=== PATIENT | male | born 1955 | race Caucasian/White ===

== ENCOUNTER → 2018-01-16 11:15 | Outpatient (CLI) | payer OTHER, BC, SELFPAY ==
[2018-01-16 12:27] LABS: PSA,Total- Diagnostic 4.58 ng/mL (0.0-4.0)
== END ==
PROVIDERS: Family Provider Family Medicine; PCP Family Medicine; Referring Provider Urology; Visit Provider Urology
DX: R97.20 Elevated prostate specific antigen [PSA] (principal)
CPT/HCPCS: 36415; 84153

== ENCOUNTER → 2018-07-21 | Outpatient (CLI) | payer OTHER, BC, SELFPAY ==
[2018-07-21 11:05] LABS: PSA,Total- Diagnostic 4.14 ng/mL (0.0-4.0)
== END | disposition home or self-care (01) ==
LOC: LAB.FUTURE 09:57
PROVIDERS: Family Provider Family Medicine; PCP Family Medicine; Referring Provider Urology; Visit Provider Urology
DX: R97.20 Elevated prostate specific antigen [PSA] (principal)
CPT/HCPCS: 36415; 84153

== ENCOUNTER → 2019-07-23 10:27 | Outpatient (CLI) | payer OTHER, BC, SELFPAY ==
[2019-07-23 12:12] LABS: PSA,Total- Diagnostic 3.97 ng/mL (0.0-4.0)
== END ==
LOC: LAB.FUTURE 10:35 → LAB 10:38
PROVIDERS: PCP Family Medicine; Referring Provider Urology; Visit Provider Urology
DX: R97.20 Elevated prostate specific antigen [PSA] (principal)
CPT/HCPCS: 36415; 84153

== ENCOUNTER 2020-07-17 15:08 | Outpatient (RCR) | payer OTHER, BC, SELFPAY | END 2020-09-09 23:59 | LOC: IMMUN 15:08 | PROVIDERS: PCP Family Medicine; Referring Provider Family Medicine; Visit Provider Family Medicine | DX: Z23 Encounter for immunization (principal) | CPT/HCPCS: 0001A; 0002A; 91300 ==

== ENCOUNTER → 2021-08-14 | Outpatient (CLI) | payer OTHER, BC, SELFPAY ==
[2021-08-14 11:41] LABS: PSA,Total - Annual Screen 3.69 ng/mL (0.00-4.00)
== END | disposition home or self-care (01) ==
LOC: LAB 10:48
PROVIDERS: PCP Family Medicine; Visit Provider Urology
DX: Z12.5 Encounter for screening for malignant neoplasm of prostate (principal)
CPT/HCPCS: 36415; 84153; G0103

== ENCOUNTER → 2022-08-17 | Outpatient (CLI) | payer MEDICARE, SELFPAY ==
[2022-08-17 10:19] LABS: PSA,Total - Annual Screen 4.76 ng/mL (0.00-4.00)
== END | disposition home or self-care (01) ==
LOC: LAB 09:31
PROVIDERS: PCP Nurse Practitioner Primary Care; Referring Provider Urology; Visit Provider Urology
DX: Z12.5 Encounter for screening for malignant neoplasm of prostate (principal)
CPT/HCPCS: 36415; 84153; G0103

== ENCOUNTER → 2023-08-23 | Outpatient (CLI) | payer MEDICARE, SELFPAY ==
[2023-08-23 12:08] LABS: PSA,Total- Diagnostic 4.67 ng/mL (0.0-4.0)
== END | disposition home or self-care (01) ==
LOC: LAB 09:58
PROVIDERS: PCP Nurse Practitioner Primary Care; Referring Provider Urology; Visit Provider Urology
DX: R97.20 Elevated prostate specific antigen [PSA] (principal)
CPT/HCPCS: 36415; 84153

== ENCOUNTER → 2024-08-28 | Outpatient (CLI) | payer MEDICARE, SELFPAY ==
[2024-08-28 12:57] LABS: PSA,Total- Diagnostic 6.06 ng/mL (0.00-4.00)
== END | disposition home or self-care (01) ==
LOC: LAB 10:42
PROVIDERS: PCP Nurse Practitioner Primary Care; Referring Provider Urology; Visit Provider Urology
DX: N40.1 Benign prostatic hyperplasia with lower urinary tract symptoms (principal)
CPT/HCPCS: 36415; 84153

== ENCOUNTER → 2024-08-30 | Outpatient (CLI) | payer MEDICARE, SELFPAY ==
[2024-08-31 14:09] LABS: PSA, Free 1.06 ng/mL; PSA, Free % 15.4 % (.)
== END | disposition home or self-care (01) ==
LOC: LAB 12:17
PROVIDERS: PCP Nurse Practitioner Primary Care; Referring Provider Nurse Practitioner; Visit Provider Nurse Practitioner
DX: R97.20 Elevated prostate specific antigen [PSA] (principal)
CPT/HCPCS: 36415; 84153; 84154

== ENCOUNTER → 2024-10-01 | Outpatient (CLI) | payer MEDICARE, SELFPAY ==
--- NOTE | 2024-10-01 12:01 | MRI_ITS ---
PROCEDURE: PELVIS W/WO CONTRAST, 10/01/2024 REASON FOR EXAM: ELEVATED PROSTATE SPECIFIC ANTIGEN, reportedly 6.0 on 08/28/2024 per technologist report TECHNIQUE: Multisequence multiplanar MRI pelvis was performed with and without IV contrast. IV Contrast: 17 mL Clariscan COMPARISON: None FINDINGS: Prostate size: 4.9 x 4.2 x 4.6 cm, estimated volume 49.2 mL. Per the above provided PSA, PSA density is 0.122 ng/mL. Transition zone: PI-RADS 2 findings. Additional lesions as below: *Lesion 1: RIGHT anterior transition zone midgland, 1.1 cm (series 12, image 17). *T2 score: 2. *DWI score: 4. *DCE: N/A. *Overall PI-RADS: 3. *Extracapsular extension:No gross extracapsular extension. Peripheral Zone: Background changes of likely prostatitis (PI-RADS 2). Extruded and partially extruded transition zone nodules present bilaterally. Neurovascular bundles: Unremarkable. Seminal vesicles: Unremarkable. Bladder: Underdistended and suboptimally evaluated. Wall thickening and trabeculation suggesting chronic bladder outlet obstruction. Lymph nodes: Prominent but nonenlarged LEFT external iliac node by PI-RADS criteria, 7 mm short axis.. Bones: No destructive or frankly suspicious bony lesions identified. Trace to small RIGHT hip joint effusion. Lumbar facet arthropathy. Likely degenerative foci of enhancement along the bilateral acetabuli. Other: Small fat containing umbilical hernia. Trace hydroceles.. MRI/Pelvis W/WO Contrast IMPRESSION: 1. 1.1 cm PI-RADS 3 lesion in the mid RIGHT anterior transition zone. No gross extracapsular extension. 2. No overt pelvic lymphadenopathy. 3. Additional description as above. Reading Location: [id number]
== END | disposition home or self-care (01) ==
LOC: OPMRI 11:59
PROVIDERS: PCP Nurse Practitioner Family; Referring Provider Urology; Visit Provider Urology
DX: R97.20 Elevated prostate specific antigen [PSA] (principal)
CPT/HCPCS: 72197; A9575; A4216

== ENCOUNTER → 2024-11-05 | Outpatient (CLI) | payer MEDICARE, SELFPAY ==
--- NOTE | 2024-11-05 13:00 | PROSBIL_PTH ---
PATIENT: SHANTAL HUA LOC: [facility] U#:[id number] AGE/SX: 69/M ROOM: RE11/05/[address]: Dr. Serg Kitchen MD : [id number] BED: DIS: 11/05/2024 SPEC #: [id number] RECD: 11/05/24 15:00 STATUS: DEBBIE KADIE #: [id number] MONCHO: 11/05/24 13:[address]: Serg Kitchen DEPT: SURGICAL PATHOLOGY RECD BY: Acosta Gu ENTERED: 11/06/24 09:46 SP TYPE: PROST BX MARIA GUADALUPE DR: Scooter Garcia, KAELA-Carrie Tissues: A - PROSTATE RIGHT B - PROSTATE RIGHT C - PROSTATE RIGHT D - PROSTATE RIGHT E - PROSTATE LEFT F - PROSTATE LEFT G - PROSTATE LEFT Procedures: PROSTATE BX Immunohistochemical Stains HEADER OPERATION: Prostate biopsy PRE-OP DIAGNOSIS: Elevated PSA TISSUE SUBMITTED: A - Right apex, B - Right mid, C - Right base, D- Right anterior, E- Left apex, F - Left mid, G - Left base MICROSCOPIC DIAGNOSIS A. Prostate, right, apex, biopsy: - Benign prostate tissue - PIN4 IHC supports the histologic impression. B. Prostate, right, mid, biopsy: - High grade PIN. - PIN4 IHC supports the histologic impression. C. Prostate, right, base, biopsy: - High grade PIN. - PIN4 IHC supports the histologic impression. D. Prostate, right, anterior, biopsy: - High grade PIN. - PIN4 IHC supports the histologic impression. E. Prostate, left, apex, biopsy: - High grade PIN. - PIN4 IHC supports the histologic impression. F. Prostate, left, mid, biopsy: - High grade PIN. - PIN4 IHC supports the histologic impression. G. Prostate, left, base, biopsy: - Benign prostate tissue - PIN4 IHC supports the histologic impression. MICROSCOPIC DESCRIPTION Slides are reviewed. All matched controls reacted appropriately. These tests were developed and their performance characteristics determined by [facility]. They may not have been cleared or approved by the [place] Food and Drug Administration. The FDA has determined that such clearance or approval is not necessary.? The above immunohistochemical/dualISH?markers are reviewed by the Pathologist GROSS DESCRIPTION Received in 7 formalin containers labeled with the patient's name and date of . Designated as: A. RA is a lafleur tissue core, 1.9 cm in length by 0.1 cm in diameter. Entirely submitted in 1 cassette. B. RM is a fragmented lafleur tissue core, 1.1 cm in length by 0.1 cm in diameter. Entirely submitted in 1 cassette. C. RB is a lafleur tissue core, 1.8 cm in length by 0.1 cm in diameter. Entirely submitted in 1 cassette. D. R anterior are 4 lafleur tissue cores, 1.4 cm to 1.8 cm in length by 0.1 cm in diameter. Entirely submitted in 1 cassette. E. LA is a lafleur tissue core, 2.1 cm in length by 0.1 cm in diameter. Entirely submitted in 1 cassette. F. LM is a lafleur tissue core, 1.4 cm in length by 0.1 cm in diameter. Entirely submitted in 1 cassette. G. LB is a lafleur tissue core, 1.3 cm in length by 0.1 cm in diameter. Entirely submitted in 1 cassette. MI 11/06/2024 CPT:[id number]
== END | disposition home or self-care (01) ==
LOC: LABSPEC 15:45
PROVIDERS: PCP Nurse Practitioner Family; Referring Provider Urology; Visit Provider Urology
DX: R97.20 Elevated prostate specific antigen [PSA] (principal)
CPT/HCPCS: 88305; 88342; G0416